=== PATIENT | male | born 1985 | race Caucasian/White ===

== ENCOUNTER 2017-10-15 08:07 | Inpatient (IN) | payer BC, OTHER ==
[~2017-10-15] VITALS: Ht 180.3 cm; Wt 81.6 kg
[2017-10-15] MEDS ORDERED: MIRALAX 17 GM POWD.PACK PO PRN (15:30)
[2017-10-15] MEDS ORDERED: ACETAMINOPHEN 325 MG TABLET PO PRN (15:30)
[2017-10-15] MEDS ORDERED: ONDANSETRON 4 MG/2 ML VIAL IM PRN (15:30)
[2017-10-15] MEDS ORDERED: MAGNESIUM HYDROXIDE 30 ML LIQUID UDC PO PRN (15:30)
[2017-10-15] MEDS ORDERED: LORAZEPAM 2 MG/1 ML VIAL IM PRN (15:30)
[2017-10-15] MEDS ORDERED: LOPERAMIDE HCL 2 MG CAPSULE PO PRN ×2 (15:30)
[2017-10-15] MEDS ORDERED: THIAMINE HCL 200 MG/2 ML VIAL IM ONE (15:30)
[2017-10-15] MEDS ORDERED: LORAZEPAM 1 MG TABLET PO PRN ×2 (15:30)
[2017-10-15] MEDS ORDERED: DICYCLOMINE HCL 20 MG TABLET PO PRN (15:30)
[2017-10-15] MEDS ORDERED: CLONIDINE HCL 0.1 MG TABLET PO PRN (15:30)
[2017-10-15 15:52] LABS: *AMPHETAMINE, URINE NEGATIVE (NEGATIVE); *BARBITURATE, URINE NEGATIVE (NEGATIVE); *CANNABINOID, URINE NEGATIVE (NEGATIVE); *COCCAINE, URINE NEGATIVE (NEGATIVE); *OPIATE, URINE NEGATIVE (NEGATIVE); *PHENCYCLIDINE SCREEN,URINE NEGATIVE (NEGATIVE)
[2017-10-15 16:00] VITALS: BP 132/65
[2017-10-15] MEDS: ONDANSETRON ODT 4 MG TAB.RAPDIS SL PRN (16:09)
[2017-10-15] MEDS ORDERED: THIAMINE HCL 100 MG TABLET PO ONE (16:15)
[2017-10-15] MEDS ORDERED: probiotic 10 (16:40)
[2017-10-15] MEDS ORDERED: TRAZ-144 PO (16:40)
[2017-10-15] MEDS ORDERED: SERT100T PO (16:41)
[2017-10-15] MEDS ORDERED: VALA100026 PO (16:43)
[2017-10-15 17:48] LABS: BASOPHILS # (AUTO) 0.1 K/uL (0.0-8.0); BASOPHILS % (AUTO) 1.9 % (0.0-2.0); EOSINOPHILS # (AUTO) 0.1 K/uL (0.0-0.7); EOSINOPHILS % (AUTO) 1.2 % (0.0-7.0); HEMATOCRIT 41.4 % (36.7-47.1); HEMOGLOBIN 14.1 g/dL (12.5-16.3); LYMPHOCYTES # (AUTO) 1.4 K/uL (20.0-40.0); LYMPHOCYTES % (AUTO) 28.3 % (20.5-51.5); MEAN CORPUSCULAR HEMOGLOBIN 32.5 uug (23.8-33.4); MEAN CORPUSCULAR HGB CONC 34 g/dL (32.5-36.3); MEAN CORPUSCULAR VOLUME 95.4 fL (73.0-96.2); MONOCYTES # (AUTO) 0.4 K/uL (2.0-10.0); MONOCYTES % (AUTO) 8.3 % (0.0-11.0); NEUTROPHILS % (AUTO) 60.3 % (38.5-71.5); PLATELET COUNT (AUTO) 174 K/uL (152-348); RED BLOOD CELL COUNT(AUTO) 4.34 MIL/uL (4.06-5.63)
[2017-10-15 18:01] LABS: ALANINE AMINOTRANSFERASE 21 U/L (16-63); ALKALINE PHOSPHATASE 64 U/L (50-136); AMYLASE 55 U/L (25-115); ASPARTATE AMINOTRANSFERASE 18 U/L (15-37); BILIRUBIN,TOTAL 0.5 mg/dL (0.2-1.0); CARBON DIOXIDE 28 mmol/L (21-32); CHLORIDE 103 mmol/L (98-107); CREATININE 1.1 mg/dL (0.6-1.3); GLUCOSE 97 mg/dL (74-106); MAGNESIUM 1.5 mg/dL (1.8-2.4); POTASSIUM 3.8 mmol/L (3.5-5.1); TOTAL PROTEIN, SERUM 7.1 g/dL (6.4-8.2); UREA NITROGEN, BLOOD 14 mg/dL (7-18)
[2017-10-15 18:02] LABS: ETHANOL < 3 MG/DL (0-0)
[2017-10-15] MEDS ORDERED: MAGNESIUM OXIDE 400 MG TABLET PO ONE (18:30)
[2017-10-15 20:41] VITALS: BP 130/98
[2017-10-15] MEDS ORDERED: LORAZEPAM 1 MG TABLET PO SCH (21:00)
[2017-10-15] MEDS ORDERED: TRAZODONE 50 MG TABLET PO PRN (21:00)
[2017-10-16 00:20] VITALS: BP 122/82
[2017-10-16 04:31] VITALS: BP 129/83
[2017-10-16 08:00] VITALS: BP 105/71
[2017-10-16] MEDS: LORAZEPAM 1 MG TABLET PO SCH ×3 (08:55→22:01)
[2017-10-16] MEDS: THIAMINE HCL 100 MG TABLET PO SCH (08:55)
[2017-10-16] MEDS: ONDANSETRON ODT 4 MG TAB.RAPDIS SL PRN ×2 (08:55→22:02)
[2017-10-16] MEDS: FOLIC ACID 1 MG TABLET PO SCH (08:55)
[2017-10-16] MEDS: IBUPROFEN 400 MG TABLET PO PRN (08:55)
[2017-10-16] MEDS: MULTIVITAMINS,THERAPEUTIC TABLET PO SCH (08:55)
[2017-10-16] MEDS: VALACYCLOVIR 1000 MG PO SCH (08:56)
[2017-10-16] MEDS ORDERED: TUBERCULIN,PURIF.PROT.DERIV. 5 TU/0.1 ML TEST ID ONE (09:00)
[2017-10-16] MEDS: MAG HYDROX/AL HYDROX/SIMETH 30 ML LIQUID UDC PO PRN ×2 (11:21→22:02)
[2017-10-16 12:00] VITALS: BP 117/70
[2017-10-16 16:00] VITALS: BP 113/66
[2017-10-16] MEDS: TRAZODONE 50 MG TABLET PO SCH (22:01)
[2017-10-16] MEDS: SERTRALINE HCL 100 MG TABLET PO SCH (22:02)
[2017-10-17] VITALS (7 sets, daily range): BP systolic 78–119; BP diastolic 45–85
[2017-10-17] MEDS: MAG HYDROX/AL HYDROX/SIMETH 30 ML LIQUID UDC PO PRN (08:43)
[2017-10-17] MEDS: ONDANSETRON ODT 4 MG TAB.RAPDIS SL PRN (08:43)
[2017-10-17] MEDS: THIAMINE HCL 100 MG TABLET PO SCH (08:44)
[2017-10-17] MEDS: LORAZEPAM 1 MG TABLET PO SCH ×2 (08:44→12:19)
[2017-10-17] MEDS: VALACYCLOVIR 1000 MG PO SCH (08:44)
[2017-10-17] MEDS: FOLIC ACID 1 MG TABLET PO SCH (08:44)
[2017-10-17] MEDS: MULTIVITAMINS,THERAPEUTIC TABLET PO SCH (08:44)
[2017-10-17 10:07] LABS: HEPATITIS B SURFACE AG Negative (Negative)
[2017-10-17] MEDS ORDERED: LORAZEPAM 1 MG TABLET PO SCH ×2 (17:00→21:00)
[2017-10-17] MEDS: SERTRALINE HCL 100 MG TABLET PO SCH (21:21)
[2017-10-17] MEDS: TRAZODONE 50 MG TABLET PO SCH (21:21)
[2017-10-18 00:39] VITALS: BP 112/76
[2017-10-18 04:10] VITALS: BP 110/65
[2017-10-18 08:00] VITALS: BP 106/63
[2017-10-18] MEDS: FOLIC ACID 1 MG TABLET PO SCH (08:53)
[2017-10-18] MEDS: VALACYCLOVIR 1000 MG PO SCH (08:53)
[2017-10-18] MEDS: THIAMINE HCL 100 MG TABLET PO SCH (08:53)
[2017-10-18] MEDS: MULTIVITAMINS,THERAPEUTIC TABLET PO SCH (08:54)
[2017-10-18] MEDS ORDERED: LORAZEPAM 1 MG TABLET PO SCH ×3 (09:00→21:00)
[2017-10-18 12:00] VITALS: BP 97/65
[2017-10-18 16:00] VITALS: BP 117/71
[2017-10-18] MEDS: ONDANSETRON ODT 4 MG TAB.RAPDIS SL PRN (19:39)
[2017-10-18 20:00] VITALS: BP 125/90
[2017-10-18] MEDS: MAG HYDROX/AL HYDROX/SIMETH 30 ML LIQUID UDC PO PRN (20:53)
[2017-10-18] MEDS: GABAPENTIN 300 MG CAPSULE PO SCH (20:54)
[2017-10-18] MEDS: TRAZODONE 50 MG TABLET PO SCH (20:54)
[2017-10-18] MEDS: SERTRALINE HCL 100 MG TABLET PO SCH (20:54)
[2017-10-19] VITALS: BP 115/80
[2017-10-19 04:00] VITALS: BP 105/65
[2017-10-19 08:00] VITALS: BP 98/81
[2017-10-19] MEDS: MULTIVITAMINS,THERAPEUTIC TABLET PO SCH (08:34)
[2017-10-19] MEDS: THIAMINE HCL 100 MG TABLET PO SCH (08:34)
[2017-10-19] MEDS: VALACYCLOVIR 1000 MG PO SCH (08:34)
[2017-10-19] MEDS: GABAPENTIN 300 MG CAPSULE PO SCH ×2 (08:34→20:54)
[2017-10-19] MEDS: FOLIC ACID 1 MG TABLET PO SCH (08:34)
[2017-10-19] MEDS ORDERED: LORAZEPAM 1 MG TABLET PO SCH (09:00)
[2017-10-19 12:00] VITALS: BP 108/63
[2017-10-19] MEDS ORDERED: HYDR25CA PO (15:17)
[2017-10-19] MEDS ORDERED: GABA-534 PO (15:17)
[2017-10-19 16:00] VITALS: BP 126/90
[2017-10-19 20:00] VITALS: BP 118/81
[2017-10-19] MEDS: IBUPROFEN 400 MG TABLET PO PRN (20:54)
[2017-10-19] MEDS: TRAZODONE 50 MG TABLET PO SCH (20:55)
[2017-10-19] MEDS: LORAZEPAM 1 MG TABLET PO SCH (20:55)
[2017-10-19] MEDS: SERTRALINE HCL 100 MG TABLET PO SCH (20:55)
[2017-10-20] VITALS: BP 113/73
[2017-10-20 08:00] VITALS: BP 110/72
[2017-10-20] MEDS: GABAPENTIN 300 MG CAPSULE PO SCH ×2 (08:52→20:58)
[2017-10-20] MEDS: VALACYCLOVIR 1000 MG PO SCH (08:52)
[2017-10-20] MEDS: THIAMINE HCL 100 MG TABLET PO SCH (08:52)
[2017-10-20] MEDS: FOLIC ACID 1 MG TABLET PO SCH (08:52)
[2017-10-20] MEDS: MULTIVITAMINS,THERAPEUTIC TABLET PO SCH (08:52)
[2017-10-20] MEDS: LORAZEPAM 1 MG TABLET PO SCH ×2 (08:54→09:11)
[2017-10-20] MEDS ORDERED: LORAZEPAM 1 MG TABLET PO SCH (09:00)
[2017-10-20 12:00] VITALS: BP 104/69
[2017-10-20] MEDS: MAG HYDROX/AL HYDROX/SIMETH 30 ML LIQUID UDC PO PRN (12:01)
[2017-10-20 16:00] VITALS: BP 129/84
[2017-10-20 20:00] VITALS: BP 136/71
[2017-10-20] MEDS: TRAZODONE 50 MG TABLET PO SCH (20:58)
[2017-10-20] MEDS: SERTRALINE HCL 100 MG TABLET PO SCH (20:58)
[2017-10-21 08:00] VITALS: BP 130/76
[2017-10-21] MEDS: MULTIVITAMINS,THERAPEUTIC TABLET PO SCH (08:44)
[2017-10-21] MEDS: THIAMINE HCL 100 MG TABLET PO SCH (08:44)
[2017-10-21] MEDS: FOLIC ACID 1 MG TABLET PO SCH (08:44)
[2017-10-21] MEDS: VALACYCLOVIR 1000 MG PO SCH (08:44)
[2017-10-21] MEDS: GABAPENTIN 300 MG CAPSULE PO SCH (08:44)
[2017-10-23] MEDS ORDERED: LORAZEPAM 1 MG TABLET PO SCH (21:00)
== END 2017-10-21 10:00 | disposition other institution (70) | DRG 895 ==
LOC: SRC 15:12
PROVIDERS: ADMIT Internal Medicine; ATTEND Internal Medicine
PROC: HZ2ZZZZ Detoxification Services for Substance Abuse Treatment (ICD-10-PCS; principal; 2017-10-15)
PROC: HZ31ZZZ Individual Counseling for Substance Abuse Treatment, Behavioral (ICD-10-PCS; 2017-10-16)
PROC: HZ41ZZZ Group Counseling for Substance Abuse Treatment, Behavioral (ICD-10-PCS; 2017-10-19)
DX: F10.232 Alcohol dependence with withdrawal with perceptual disturbance (principal); E83.42 Hypomagnesemia; F17.210 Nicotine dependence, cigarettes, uncomplicated; Z81.1 Family history of alcohol abuse and dependence; Y90.0 Blood alcohol level of less than 20 mg/100 ml; Z91.89 Other specified personal risk factors, not elsewhere classified; F32.9 Major depressive disorder, single episode, unspecified; G47.00 Insomnia, unspecified; A60.00 Herpesviral infection of urogenital system, unspecified; F14.10 Cocaine abuse, uncomplicated
CPT/HCPCS: 36415; 70030-TC; 80307; 83735; 85025; 86580; 86592; 86705; 86803; 87340; 87806; A4663; G0480; Q0162

== ENCOUNTER 2018-04-16 10:48 | Inpatient (IN) | payer OTHER ==
[~2018-04-16] VITALS: Ht 180.3 cm; Wt 81.6 kg
[~2018-04-16 10:48] MED LIST: GABA-534 PO; HYDR25CA PO; SERT100T PO; TRAZ-182 PO; VALA100026 PO; probiotic 10
--- NOTE | 2018-04-16 11:30 | NUR ---
PREADMISSION Pt 33 y/o male received in intake. Pt admitted for ETOH withdrawal and cocaine and marijuana. Pt came from home. Alert and oriented to name, place, and time. Perrla. Skin warm and moist to touch. Respirations even and unlabored. Explained unit rules to pt with acknowledgment. Pt not intoxicated. Presents with resting bilateral hand tremors. Appears restless, foot tapping, and not able to sit still.
--- NOTE | 2018-04-16 11:34 | NUR ---
ADMISSION Pt 33 y/o male received in intake. Pt admitted for ETOH withdrawal and cocaine and marijuana. Pt came from home. Alert and oriented to name, place, and time. Perrla. Skin warm and moist to touch. Respirations even and unlabored. Pt not intoxicated at the time of admission. Appears disheveled and unkempt. Hair uncombed. Malodorous. Clothes dirty. Pt irritable making brash responses at times during assessment. Pressured speech. Irritated, grinning during some of the responses during assessment. Foot tapping, labile affect, and not able to sit still during assessment. Bilateral resting hand tremors noted. Skin clear. Pt states has PCP Dr. Dewey from [facility]. Stated has been here before for acute detox on 09/2017. Denies any SI/HI and ever being on a 5150. Pt stated he decided to come in for acute detox, because his new job is going well, but is unable to stop on his own. Stated he started drinking etoh for socialization when he was 14 years old, but is drinking alcohol now because of depression, for coping, and loneliness. Pt did not want to disclose what he was coping off. Pt said it was easier to stop drinking etoh when he was younger. Stated his use of alcohol has caused him to receive previous DUI's, lose his job, and damage his relationship with friends and family. Stated his internal motivator is his " happiness and maintaining a good job" . Stated his longest period of sobriety is 2 months and it was around 12/2017. Pt said the reason for relapse, " It's a craving. I can't explain it. All I know is I just need it. The withdrawal symptoms I get when I stop drinking make it hard to stop. " Pt states his withdrawal symptoms when he stops drinking alcohol are: headache, fever, nausea, sweats, insomnia, and dry heaving. Denies any seizures, withdrawal induced delirium, withdrawal induced cardiac complications. Pt did state has had multiple blackouts. His most recent blackout was on 04/15/18 and described it was "hazy", just remembers he was at home drinking alcohol in the morning, and only remembers it was evening, but did not remember any of the events in between. Oriented pt to room and unit. Initial ciwa=10. Pt was seen by and started on a 3 day ativan taper to begin 04/16/18. OA=717/85 P=72 O2=96%@ra R=16 T=98.0. Substance hx: 1) whiskey/ vodka po 375 mL / day x 3 months. Last drink on 04/15/18 @0500 750mL. Drinking for 18 years. 2) Cocaine snorts 1/2 gm monthly x 3 months. Last used 04/14/18 1/2gm around the evening. Used for 10 years. 3) Marijuana vapes/ smokes about 1 oz 4 days in a month x 3 months. Last used 04/13/18 1 oz. Has used for 18 years. Medical hx: Anxiety, depression, blackouts, HSV2, insomnia Treatment hx: [facility] 09/2017 [facility] 09/2017
[2018-04-16] MEDS ORDERED: VALA500T PO (11:37)
[2018-04-16 12:00] VITALS: BP 124/85
[2018-04-16] MEDS ORDERED: MAGNESIUM HYDROXIDE 30 ML LIQUID UDC PO PRN (14:30)
[2018-04-16] MEDS ORDERED: LORAZEPAM 2 MG/1 ML VIAL IM PRN (14:30)
[2018-04-16] MEDS ORDERED: LOPERAMIDE HCL 2 MG CAPSULE PO PRN ×2 (14:30)
[2018-04-16] MEDS ORDERED: LORAZEPAM 1 MG TABLET PO PRN ×2 (14:30)
[2018-04-16] MEDS ORDERED: ONDANSETRON ODT 4 MG TAB.RAPDIS SL PRN (14:30)
[2018-04-16] MEDS ORDERED: HYDROXYZINE PAMOATE 25 MG CAPSULE PO PRN (14:30)
[2018-04-16] MEDS ORDERED: CLONIDINE HCL 0.1 MG TABLET PO PRN (14:30)
[2018-04-16] MEDS ORDERED: 5 DAY TAPER OF LORAZEPAM -SERENITY PROTOCOL PO PRN (14:30)
[2018-04-16] MEDS ORDERED: THIAMINE HCL 200 MG/2 ML VIAL IM ONE (15:09)
[2018-04-16 15:12] LABS: *AMPHETAMINE, URINE NEGATIVE (NEGATIVE); *BARBITURATE, URINE NEGATIVE (NEGATIVE); *CANNABINOID, URINE NEGATIVE (NEGATIVE); *COCCAINE, URINE POSITIVE (NEGATIVE); *OPIATE, URINE NEGATIVE (NEGATIVE); *PHENCYCLIDINE SCREEN,URINE NEGATIVE (NEGATIVE)
--- NOTE | 2018-04-16 15:13 | NUR ---
PRN ZOFRAN Pt states feels nauseated. Zofran odt prn per MD order given and tolerated well.
[2018-04-16] MEDS: LORAZEPAM 1 MG TABLET PO SCH ×3 (15:39→21:06)
[2018-04-16 16:00] VITALS: BP 128/85
--- NOTE | 2018-04-16 16:00 | NUR ---
CIWA ASSESSMENT ciwa=11. Anxious and restless. Resting bilateral hand tremors noted. Pressured speech. Nausea. Not able to lay still in bed. Fidgety.
--- NOTE | 2018-04-16 16:13 | NUR ---
FARRAH BENITEZ Pt states medication is effective. Addendum: 04/16/18 at 1802 by CHRISTOPHE PURI RN title correction FARRAH THOMSON
[2018-04-16 16:25] LABS: BASOPHILS % (AUTO) 0.6 % (0.0-2.0); EOSINOPHILS # (AUTO) 0.1 K/uL (0.0-0.7); EOSINOPHILS % (AUTO) 2.3 % (0.0-7.0); HEMATOCRIT 39.7 % (36.7-47.1); HEMOGLOBIN 13.8 g/dL (12.5-16.3); LYMPHOCYTES # (AUTO) 1.2 K/uL (20.0-40.0); LYMPHOCYTES % (AUTO) 29.2 % (20.5-51.5); MEAN CORPUSCULAR HEMOGLOBIN 33.3 uug (23.8-33.4); MEAN CORPUSCULAR HGB CONC 35 g/dL (32.5-36.3); MEAN CORPUSCULAR VOLUME 96.2 fL (73.0-96.2); MONOCYTES # (AUTO) 0.4 K/uL (2.0-10.0); MONOCYTES % (AUTO) 9.6 % (0.0-11.0); NEUTROPHILS # (AUTO) 2.4 K/uL (1.8-8.9); NEUTROPHILS % (AUTO) 58.3 % (38.5-71.5); PLATELET COUNT (AUTO) 154 K/uL (152-348); RED BLOOD CELL COUNT(AUTO) 4.13 MIL/uL (4.06-5.63)
[2018-04-16 16:30] LABS: ETHANOL < 3 MG/DL (0-0)
[2018-04-16 16:34] LABS: ALANINE AMINOTRANSFERASE 21 U/L (16-63); ALKALINE PHOSPHATASE 72 U/L (50-136); AMYLASE 48 U/L (25-115); ASPARTATE AMINOTRANSFERASE 19 U/L (15-37); BILIRUBIN,TOTAL 0.6 mg/dL (0.2-1.0); CARBON DIOXIDE 31 mmol/L (21-32); CHLORIDE 105 mmol/L (98-107); CREATININE 1.1 mg/dL (0.6-1.3); GLUCOSE 96 mg/dL (74-106); LIPASE 376 U/L (73-393); MAGNESIUM 1.8 mg/dL (1.8-2.4); POTASSIUM 4.5 mmol/L (3.5-5.1); TOTAL PROTEIN, SERUM 6.8 g/dL (6.4-8.2); UREA NITROGEN, BLOOD 16 mg/dL (7-18)
[2018-04-16 16:58] LABS: THYROID STIMULATING HORMONE 1.869 mIU/mL (0.358-3.740)
[2018-04-16] MEDS ORDERED: TRAZODONE 50 MG TABLET PO SCH (18:00)
--- NOTE | 2018-04-16 18:57 | NUR ---
END OF SHIFT Pt 33 y/o admitted for ETOH withdrawal and cocaine and marijuana. Pt alert and oriented to name, place, and time. Perrla. Skin warm and moist to touch. Respirations even and unlabored. Appears disheveled and unkempt. Dirt under fingernails of both hands noted. Empty drink bottles scattered throughout the room. Encouraged to maintain hygiene. Anxious and restless. Resting bilateral hand tremors noted. Pressured speech. Nausea. Intermittent perspirations. Complaints of generalized discomfort. Isolative to room today since admission @ 1134. Did not attend group activity. Low motivation for self care. Seen by MD. Medication compliant. Last ciwa=11. Pt is on a 3 day ativan taper and is on day 1. Bed on lowest position with side rails x2 up for safety.
[2018-04-16 20:34] VITALS: BP 137/93
[2018-04-16] MEDS: SERTRALINE HCL 100 MG TABLET PO SCH (21:06)
[2018-04-16] MEDS: TRAZODONE 50 MG TABLET PO SCH (21:07)
--- NOTE | 2018-04-16 22:00 | NUR ---
Received 33 year old male admitted to [facility] on 04/16/18 for medically supervised withdrawal from ETOH with history of cocaine and marijuana use. Medical history of anxiety, depression, Herpes, insomnia, and blackouts. Pt on day 1 of 3 day Ativan taper. PRN Zofran given during day shift. Last CIWA 9 @1600. Pt in room awake, alert. Pt anxious worried, flat affect, depressed, flushed, mild tremors withdrawn, and isolative. Safety measures in use. Will continue to monitor.
[2018-04-17 00:37] VITALS: BP 123/81
--- NOTE | 2018-04-17 00:39 | NUR ---
CIWA Patient is noted in bed sleeping. Breathing even and non labored. CIWA not able to be completed as per order. Will continue to monitor.
[2018-04-17 04:30] VITALS: BP 113/75
--- NOTE | 2018-04-17 04:30 | NUR ---
CIWA Patient is noted in bed sleeping. Breathing even and non labored. No signs of restlessness or discomfort noted. CIWA not able to be completed as per order. will continue to monitor.
--- NOTE | 2018-04-17 06:53 | NUR ---
End of Shift Endorsing care of 33 year old male admitted to [facility] on 04/16/18 for medically supervised withdrawal from ETOH with history of cocaine and marijuana use. Pt on day 2 of 3 day Ativan taper. No PRN medications given this shift. Last CIWA 10 @1999. Pt lying in bed with eyes closed resting. Respirations even and unlabored. Safety measures in use. PO intake of 1000 ml, voided x2. No BM, and slept 8 hours
--- NOTE | 2018-04-17 07:30 | NUR ---
START OF SHIFT Pt 33 y/o admitted for ETOH withdrawal and cocaine and marijuana. Pt received in room on bed with eyes closed resting. Pt alert and oriented to name, place, and time. Perrla. Skin warm and moist to touch. Respirations even and unlabored. Appears disheveled. Clothes scattered throughout the room. Encouraged to maintain hygiene. Anxious and restless. Pressured speech. Complaints of intermittent perspiration. Bilateral hand tremors noted. It was reported that pt slept for 8 hours last night. Last cwia=10 @ 2000. Pt is on a 3 day ativan taper and is on day 2. Bed on lowest position with side rails x2 up for safety. Call light within reach.
[2018-04-17 08:00] VITALS: BP 111/72
--- NOTE | 2018-04-17 08:00 | NUR ---
CIWA ASSESSMENT ciwa=10. Anxious and restless. Pressured speech. Intermittent perspiration. Bilateral hand tremors noted. Complaints of generalized discomfort.
[2018-04-17] MEDS: FOLIC ACID 1 MG TABLET PO SCH (08:29)
[2018-04-17] MEDS: MULTIVITAMINS,THERAPEUTIC TABLET PO SCH (08:30)
[2018-04-17] MEDS: LORAZEPAM 1 MG TABLET PO SCH ×3 (08:30→20:57)
[2018-04-17] MEDS: THIAMINE HCL 100 MG TABLET PO SCH (08:30)
[2018-04-17] MEDS: VALACYCLOVIR HCL 500 MG TABLET PO SCH (08:30)
[2018-04-17] MEDS ORDERED: TUBERCULIN,PURIF.PROT.DERIV. 5 TU/0.1 ML TEST ID ONE (09:00)
--- NOTE | 2018-04-17 12:30 | NUR ---
CIWA ASSESSMENT ciwa=11. Bilateral hand tremors. Perspiration on forehead noted. Pressured speech. Anxious and restless.
[2018-04-17] MEDS: IBUPROFEN 600 MG TABLET PO PRN ×2 (12:52→20:57)
--- NOTE | 2018-04-17 12:55 | NUR ---
PRN ATIVAN MOTRIN ciwa=11. Bilateral hand tremors. Perspiration on forehead noted. Pressured speech. Anxious and restless. Ativan 1mg po prn per MD order given and tolerated well. Pt with complaints of generalized body pain 5/10. Motrin po prn per MD order given and tolerated well.
[2018-04-17 12:58] VITALS: BP 111/72
--- NOTE | 2018-04-17 13:52 | NUR ---
PRN ATIVAN MOTRIN EVAL ciwa=6. Bilateral hand tremors. Anxious and restless. Pressured speech. Pt states pain 2/10.
[2018-04-17] MEDS: MAG HYDROX/AL HYDROX/SIMETH 30 ML LIQUID UDC PO PRN ×2 (14:51→20:57)
--- NOTE | 2018-04-17 14:53 | NUR ---
PRN MALOOX Pt with c/o heartburn. Maloox prn per MD order given and tolerated well.
--- NOTE | 2018-04-17 15:53 | NUR ---
PRN MALOOX Pt states medication was effective.
[2018-04-17 16:00] VITALS: BP 118/72
--- NOTE | 2018-04-17 16:00 | NUR ---
CIWA ASSESSMENT ciwa=10. Anxious and restless. pressured speech noted. Fidgety. Bilateral hand tremors noted. Intermittent perspiration.
--- NOTE | 2018-04-17 18:41 | NUR ---
END OF SHIFT Pt 33 y/o admitted for ETOH withdrawal and cocaine and marijuana. Pt alert and oriented to name, place, and time. Perrla. Skin warm and moist to touch. Respirations even and unlabored. Appears disheveled and unkempt. Food wrappings scattered throughout the room. Encouraged to maintain hygiene. Anxious and restless. Bilateral hand tremors noted. Pressured speech. Intermittent perspirations. Complaints of generalized discomfort. Complaints of body pain. Isolative to room today with no peer interaction. Did not attend group activity. Low motivation for self care. Seen by MD. Medication compliant. Last ciwa=10. Pt is on a 3 day ativan taper and is on day 2. Bed on lowest position with side rails x2 up for safety.
--- NOTE | 2018-04-17 19:20 | NUR ---
START OF SHIFT Patient is a 33-year-old male admitted on 04/16/18 for ETOH withdrawal. Patient is on a 3-day Ativan taper, tolerating well; today is day 2. Patient's last CIWA was 10 per endorsement. Patient received PRN Motrin and Maalox, noted to be effective. Patient also received PRN Ativan 1mg for increased anxiety at 1252, noted to be effective. Upon assessment, patient is alert and oriented x4. Patient appears anxious, restless and disheveled. Patient's room has a foul odor and appears messy. Pt. complains of mild headache and some heartburn. Patient is on fall and sezire precautions with no previous history of seizure. Safety measures in place, side rails up x2, bed locked in low position, call light within reach. Will continue to monitor.
[2018-04-17 20:00] VITALS: BP 126/90
--- NOTE | 2018-04-17 20:00 | NUR ---
CIWA 13 Patient is anxious, restless, and complains of headache 4/10. Patient is noticeably fidgety and mildly diaphoretic. Current CIWA is 13.
[2018-04-17] MEDS: SERTRALINE HCL 100 MG TABLET PO SCH (20:57)
[2018-04-17] MEDS: TRAZODONE 50 MG TABLET PO SCH (20:57)
--- NOTE | 2018-04-17 20:57 | NUR ---
PRN MOTRIN & MAG AL Patient complains of heartburn and headache 11/03. PRN Motrin and Mag Al given PO. Safety measures in place, call light within reach. Will monitor for effectiveness.
--- NOTE | 2018-04-17 21:57 | NUR ---
PRN MOTRIN & MAALOX REASSESSMENT Patient reports that PRN medications were effective in reducing headache and heartburn. Safety measures in place, side rails up x2, bed locked in low position, call light within reach. Will continue to monitor.
[2018-04-18] VITALS: BP 117/81
--- NOTE | 2018-04-18 | NUR ---
CIWA 11 Patient is moderately anxious and is still noted to be restless. Patient reports that headache has improved. CIWA is 11 at this time.
--- NOTE | 2018-04-18 04:00 | NUR ---
VITALS REFUSED, CIWA DEFERRED Patient refused vitals at this time, CIWA deferred due to patient sleeping. Respirations are even and unlabored. Safety measures in place, side rails up x2, bed locked in low position, call light within reach. Will continue to monitor.
--- NOTE | 2018-04-18 07:20 | NUR ---
END OF SHIFT Patient is a 33-year-old male admitted on 04/16/18 for ETOH withdrawal. Patient is on a 3-day Ativan taper, tolerating well; today is the final day of the taper. Patient's last CIWA was 11. Patient received PRN Motrin for headache which was effective, but PRN Maalox did not relieve patient of heartburn. Patient slept for 7 hours, total intake of 355mL, void x1, stool x0. Patient is on fall and seizure precautions with no previous history of seizure. Safety measures in place, side rails up x2, bed locked in low position, call light within reach. Will endorse to day shift.
--- NOTE | 2018-04-18 07:35 | NUR ---
START OF SHIFT Endorse rcvd from ongoing nurse, client is in bed, on his R side, he appears with flushed face, clammy skin. he sounds asleep, easy to arouse, RR 16, even, non-labored. Room is unkept, several opened snacks noted at bedside table. Last CIWA 11 @ 1999. PRN administered and noted per protocol. He slept 7 hrs. Seizure precautions in place. Call light within reach.
[2018-04-18 08:00] VITALS: BP 104/69
[2018-04-18] MEDS: FOLIC ACID 1 MG TABLET PO SCH (09:55)
[2018-04-18] MEDS: MULTIVITAMINS,THERAPEUTIC TABLET PO SCH (09:55)
[2018-04-18] MEDS: LORAZEPAM 1 MG TABLET PO SCH ×2 (09:55→21:08)
[2018-04-18] MEDS: THIAMINE HCL 100 MG TABLET PO SCH (09:55)
[2018-04-18] MEDS: VALACYCLOVIR HCL 500 MG TABLET PO SCH (09:55)
--- NOTE | 2018-04-18 09:55 | NUR ---
CIWA 14 COWS 28, patient continues to present with nausea, tremors, sweats, cold and clammy skin, chills, hot flashes. Schedule Ativan 1mg PO administered. Will continue to monitor.
[2018-04-18 12:00] VITALS: BP 111/65
--- NOTE | 2018-04-18 12:20 | NUR ---
WA 10 Client presenting with nausea. no episodes of emesis, anxiety, restless legs, agitation, body aches, chills, and fatigue. Client deferred PRN medications to help manage withdrawal symptoms. Call light within reach.
--- NOTE | 2018-04-18 15:38 | NUR ---
Therapist prompted client to attend twice daily group therapy sessions and client agreed to do so.
--- NOTE | 2018-04-18 16:25 | NUR ---
CIWA 10 Client continues to present with nausea. no episodes of emesis, anxiety, restless legs, agitation, body aches, chills, and fatigue. Client deferred PRN medications to help manage withdrawal symptoms. Call light within reach.
[2018-04-18 16:55] VITALS: BP 125/87
--- NOTE | 2018-04-18 19:45 | NUR ---
END OF SHIFT Endorse client to incoming nurse, client is in room, a/o x 4. Client continues to present with agitation, anxiety, chills, clammy skin, fatigue, tremors, and clammy skin. Last CIWA 1 @ 1630. Adequate PO fluid intake 2000mL, void x 3. Client is not compliant with group therapy. Consumes 50% of meals. Call light within reach.
--- NOTE | 2018-04-18 19:46 | NUR ---
START OF SHIFT Patient is a 33-year-old male admitted on 04/16/18 for ETOH withdrawal. Patient is on a 3-day Ativan taper, tolerating well; today is the final day of taper. Patient's last CIWA was 10 per endorsement. Patient received no PRN medications today. Upon assessment, patient is alert and oriented x4, in his room watching television. Patient complains of anxiety and states that last night I woke up every 15 minutes because the techs kept opening and closing the door. I know they have to check on us but Im a light sleeper. Patient showered during change of shift, room odor has improved. Meds due. Patient is on fall and seizure precautions with no previous history of seizure. Safety measures in place, side rails up x2, bed locked in low position, call light within reach. Will continue to monitor.
[2018-04-18 20:00] VITALS: BP 121/81
--- NOTE | 2018-04-18 20:00 | NUR ---
CIWA 11 Patient reports feeling anxious and is visibly restless and diaphoretic. Patient has a current CIWA of 11. Meds due, will continue to monitor.
[2018-04-18] MEDS: SERTRALINE HCL 100 MG TABLET PO SCH (21:08)
[2018-04-18] MEDS: TRAZODONE 50 MG TABLET PO SCH (21:08)
[2018-04-18] MEDS: IBUPROFEN 600 MG TABLET PO PRN (21:08)
--- NOTE | 2018-04-18 21:08 | NUR ---
PRN MOTRIN Patient reports feeling "sore," generalized body aches 5/10. PRN Motrin given PO. Safety measures in place, side rails up x2, bed locked in low position, call light within reach. Will monitor for effectiveness.
--- NOTE | 2018-04-18 22:08 | NUR ---
PRN MOTRIN REASSESSMENT Patient reports body aches have improved; PRN Motrin noted to be effective. Safety measures in place, side rails up x2, bed locked in low position, call light within reach. Will continue to monitor.
--- NOTE | 2018-04-19 | NUR ---
VITALS REFUSED, CIWA DEFERRED Patient did not want to be woken or disturbed, vitals refused. CIWA deferred at this time due to patient sleeping. Respirations even and unlabored. Safety measures in place, side rails up x2, bed locked in low position, call light within reach. Will continue to monitor.
--- NOTE | 2018-04-19 04:00 | NUR ---
VITALS REFUSED, CIWA DEFERRED Vitals refused. CIWA deferred due to patient sleeping; to be assessed while patient is awake. Respirations even and unlabored. Safety measures in place, side rails up x2, bed locked in low position, call light within reach. Will continue to monitor.
--- NOTE | 2018-04-19 07:15 | NUR ---
END OF SHIFT Patient is a 33-year-old male admitted on 04/16/18 for ETOH withdrawal. Patient has completed a 3-day Ativan taper yesterday, tolerated well; scheduled for discharge tomorrow. Patient's last CIWA was 11. Patient received PRN Motrin which was noted to be effective. Patient slept for 9 hours, total intake of 1,196mL, void x3, stool x0. Patient is on fall and seizure precautions with no previous history of seizure. Safety measures in place, side rails up x2, bed locked in low position, call light within reach. Will endorse to day shift.
--- NOTE | 2018-04-19 07:30 | NUR ---
START OF SHIFT Received report from credentialing analyst nurse. Pt is lying in bed resting with eyes closed. He is easily arousable for morning vital signs. He is a 33 yo male admitted to the [facility] on 04/16 for ETOH withdrawal. 3 day Valium taper completed last night. PRN Motrin administered on credentialing analyst. He denies pain this morning. Last CIWA was 11 and he slept for 9 hours. Skin is warm and moist. Respirations even and unlabored. Safety measures in place. Addendum: 04/19/18 at 0921 by TERESA SANTOS RN Correction: Pt completed 3 Day Ativan taper.
[2018-04-19 08:00] VITALS: BP 99/57
--- NOTE | 2018-04-19 09:25 | NUR ---
CIWA Assessment Pt is lying in bed. He is having mild anxiety, restlessness, and moist skin. His affect is flat. CIWA score 7.
[2018-04-19] MEDS: FOLIC ACID 1 MG TABLET PO SCH (09:27)
[2018-04-19] MEDS: THIAMINE HCL 100 MG TABLET PO SCH (09:28)
[2018-04-19] MEDS: VALACYCLOVIR HCL 500 MG TABLET PO SCH (09:28)
[2018-04-19] MEDS: MULTIVITAMINS,THERAPEUTIC TABLET PO SCH (09:28)
[2018-04-19 12:30] VITALS: BP 103/64
--- NOTE | 2018-04-19 12:30 | NUR ---
CIWA assessment Pt is having mild anxiety, restlessness, and moist skin. His affect is flat. CIWA score 6.
[2018-04-19 13:06] LABS: HEPATITIS B SURFACE AG Negative (Negative)
[2018-04-19 16:00] VITALS: BP 124/82
--- NOTE | 2018-04-19 16:30 | NUR ---
CIWA assessment Pt continues to have mild anxiety. Encouraged relaxation. His skin is moist. CIWA score 6.
--- NOTE | 2018-04-19 19:15 | NUR ---
END OF SHIFT Report provided to privacy officer nurse. Pt is attending a group meeting. He is a 33 yo male admitted to [facility] on 04/16 for ETOH withdrawal. 3 day Valium taper completed last night. He is scheduled for discharge tomorrow. He was having mild anxiety, mild tremors, and moist skin. No PRN medications administered. He is eating well and drinking fluids. He is compliant with group meetings. Last CIWA was 6 and he drank 1500mL. Safety measures in place.
--- NOTE | 2018-04-19 19:30 | NUR ---
Start of shift Patient is a 33 year old male admitted on 04/16/2018. Patient is here for medically supervised withdrawal from ETOH. Patient was on a 3 day Ativan taper finished on 04/18/2018. Patient is set for discharge on 04/20/2018. Patients last CIWA is 6. Per endorsement patient did not receive any PRN medications during dayshift. Patient is on Fall and Seizure precautions. Upon rounds patient was noted in room watching tv and he reported some body aches. Reviewed 2100 medications and plan of care with patient and he patient verbalized understanding. Patient is noted to be flat affect, depressed, anxious and agitated. Safety measures in place, bed lock in low position, side rails up x2, and call light within reach. Will continue to monitor.
[2018-04-19] MEDS: IBUPROFEN 600 MG TABLET PO PRN (19:59)
--- NOTE | 2018-04-19 19:59 | NUR ---
PRN Motrin 600mg Patient report body aches and a pain of 5/10. PRN Motrin 600mg was administered, patient tolerated well. Respirations are even and unlabored. Will monitor patient for s/s of adverse effect.
[2018-04-19 20:00] VITALS: BP 118/83
--- NOTE | 2018-04-19 20:00 | NUR ---
CIWA Assessment Patient reports s/s of withdrawal as follow: tremors, mild sweat, anxiety and agitation. Patients CIWA is 9. Respirations are even and unlabored. Safety measures in place and will continue to monitor patient.
[2018-04-19] MEDS: SERTRALINE HCL 100 MG TABLET PO SCH (20:51)
[2018-04-19] MEDS: TRAZODONE 50 MG TABLET PO SCH (20:51)
--- NOTE | 2018-04-19 20:59 | NUR ---
PRN Motrin 600mg Reassessment Patient was noted in bed watching tv and reported medication was effective. Patient denies pain. No s/s of adverse effects. Respirations are even and unlabored. Safety measures in place, will continue to monitor.
[2018-04-20] VITALS: BP 112/67
--- NOTE | 2018-04-20 | NUR ---
CIWA Deferred Patient noted in bed resting with eyes closed, breathing even and unlabored. Per protocol CIWA is to be assessed while awake. Safety measures in place and will continue to monitor.
[2018-04-20 04:00] VITALS: BP 108/68
--- NOTE | 2018-04-20 07:18 | NUR ---
End of shift Patient is a 33 year old male admitted on 04/16/2018. Patient is here for medically supervised withdrawal from ETOH. Patient was on a 3 day Ativan taper finished on 04/18/2018. Patient is set for discharge today 04/20/2018. Patients last CIWA is 9. Patient had PRN Motrin 600mg for body aches. Patient is on Fall and Seizure precautions. Patient slept for 9 hours and total intake was 1,546ml. Patient voided x4 and had no bowel movements. Patient is noted to be flat affect, depressed, anxious and agitated. Respirations are even and unlabored. Safety measures in place, bed lock in low position, side rails up x2, and call light within reach. Will endorse to day shift.
--- NOTE | 2018-04-20 07:30 | NUR ---
Start of Shift Labor Service Representative received report on 33 year old male admitted to [facility] on 04/16/18 for medical management of ETOH withdrawals. Pt endorses a PMH of HSV II and a PPH of anxiety, depression and insomnia. Pt has completed a 3 day Ativan taper in preparation of todays discharge. Last CIWA 9, per NOC report. Pt was administered Motrin(pain) on NOC, per report. Labor Service Representative encounters pt in pts room. Pt is A/O x4 and able to make needs known. Linear thought process and clear speech pattern. Pt with a normal affect and congruent mood. Pt with no complaints, aside from, a little anxiety about going home. Pt is optimistic, positive and hopeful for his future. Bed in low position with wheels locked and side rails up x2. Will continue to monitor, support and encourage according to plan of care.
[2018-04-20 08:00] VITALS: BP 118/72
--- NOTE | 2018-04-20 08:00 | NUR ---
CIWA 4 Pt with fine tremors and anxiety and discharge this morning. Will continue to monitor, support and encourage according to plan of care.
[2018-04-20] MEDS: FOLIC ACID 1 MG TABLET PO SCH (08:47)
[2018-04-20] MEDS: THIAMINE HCL 100 MG TABLET PO SCH (08:47)
[2018-04-20] MEDS: VALACYCLOVIR HCL 500 MG TABLET PO SCH (08:47)
[2018-04-20] MEDS: MULTIVITAMINS,THERAPEUTIC TABLET PO SCH (08:47)
[2018-04-20 09:10] LABS: *TRIC.VAG. NAA Negative (Negative)
--- NOTE | 2018-04-20 09:42 | NUR ---
Discharge Assessment Pt is A/O x4 and makes his needs known. Linear thought process with clear speech pattern. Pt with a normal affect, congruent mood and full range of emotions. Pt is calm and cooperative. Pt endorses some anxiety related to discharge. Last CIWA 4. Pt denies any SI/HI or A/VH. Pt educated on importance of continued sobriety and need for continued follow-up care. Pt educated on all discharge medications, including, name, route, timing, dose and indication. Pt provided with prescriptions. Pt educated on all discharge paperwork, including MD notes, lab values and discharge educational material. Pt denies any further comments, questions or concerns related discharge education. Pt is discharged to the hospital lobby where pt provided for own transportation to pt's residence.
[2018-04-20 10:10] LABS: *GC NAA Negative (Negative)
== END 2018-04-20 09:42 | disposition home or self-care (01) | DRG 895 ==
LOC: SRC 10:48
PROVIDERS: ADMIT Family Medicine Addiction Medicine; ATTEND Family Medicine Addiction Medicine
PROC: HZ2ZZZZ Detoxification Services for Substance Abuse Treatment (ICD-10-PCS; principal; 2018-04-16)
PROC: HZ31ZZZ Individual Counseling for Substance Abuse Treatment, Behavioral (ICD-10-PCS; 2018-04-18)
PROC: HZ41ZZZ Group Counseling for Substance Abuse Treatment, Behavioral (ICD-10-PCS; 2018-04-19)
DX: F10.230 Alcohol dependence with withdrawal, uncomplicated (principal); F14.10 Cocaine abuse, uncomplicated; Y90.0 Blood alcohol level of less than 20 mg/100 ml; A60.00 Herpesviral infection of urogenital system, unspecified; G47.00 Insomnia, unspecified; Z81.1 Family history of alcohol abuse and dependence; F17.210 Nicotine dependence, cigarettes, uncomplicated; F32.9 Major depressive disorder, single episode, unspecified; F41.1 Generalized anxiety disorder; F12.10 Cannabis abuse, uncomplicated; Z79.899 Other long term (current) drug therapy
CPT/HCPCS: 36415; 70030-TC; 80307; 80353; 83690; 83735; 84443; 85025; 86580; 86592; 86705; 86803; 87340; 87491; 87806; G0480; J3411; Q0162